=== PATIENT | female | born 1995 | race Caucasian/White ===

== ENCOUNTER 2019-11-26 06:14 | Day surgery (SDC) | payer BC ==
[2019-11-24 12:15] VITALS: BMI 19.6
[2019-11-26] MEDS ORDERED: AFRIN NASAL MIST 15 ML BOT ONE ×2 (06:45→07:03)
[2019-11-26] MEDS ORDERED: Lidocaine 1% w/Epinephrine 1:100K 20 ML VIAL ONE (06:45)
[2019-11-26] MEDS ORDERED: Bacitracin Zinc Ointment 30 gm TUBE ONE (06:45)
[2019-11-26 06:52] LABS: Hemoglobin 12.8 g/dL (12.0-16.0)
[2019-11-26 06:57] LABS: BHCG - Serum Negative (NEGATIVE); Pregs Control Background? CLEAR/WHITE (CLR/WHITE); Pregs Control Bar Appear? YES (CONTROL BAR)
[2019-11-26] MEDS ORDERED: Midazolam HCl 2 mg/2 ml Vial ONE ×2 (07:44→09:43)
[2019-11-26] MEDS ORDERED: Fentanyl 100 MCG/2 ML VIAL ONE ×3 (07:44→08:58)
[2019-11-26] MEDS ORDERED: methylPREDNISolone Acetate 40 mg/ml Vial ONE (08:04)
[2019-11-26] MEDS ORDERED: diphenhydrAMINE 50 MG/ML VIAL ONE (09:02)
[2019-11-26] MEDS ORDERED: Dexamethasone 20 MG/5 ML VIAL ONE (09:32)
[2019-11-26] MEDS ORDERED: Ondansetron PF 4 MG/2 ML Vial ONE (09:32)
[2019-11-26] MEDS ORDERED: Lidocaine 1% PF 5 ML VIAL ONE (09:32)
[2019-11-26] MEDS ORDERED: PROPOFOL 200 MG/20 ML VIAL ONE (09:32)
--- NOTE | 2019-11-27 08:48 | OP ---
DATE OF PROCEDURE: 11/27/2019 PREOPERATIVE DIAGNOSES: 1. Nasal septal deviation. 2. Bilateral inferior turbinate hypertrophy. 3. Nasal valve collapse. 4. Closed nasal fractures. 5. Nasal obstruction. POSTOPERATIVE DIAGNOSES: 1. Nasal septal deviation. 2. Bilateral inferior turbinate hypertrophy. 3. Nasal valve collapse. 4. Closed nasal fractures. 5. Nasal obstruction. PROCEDURES PERFORMED: 1. Nasoseptoplasty. 2. Bilateral repair of nasal wall. 3. Bilateral inferior turbinate submucosal resection. 4. Closed reduction nasal fracture. ESTIMATED BLOOD LOSS: 10 mL. COMPLICATIONS: None. ANESTHESIA: GETA. PROCEDURE IN DETAIL: Patient was taken to the operating room and placed supine on the table. General endotracheal anesthesia was obtained by the anesthesia staff. Then 1% lidocaine with 1:100,000 epinephrine was injected into the nasal septum as well as the inferior turbinates. The patient was prepped and draped in standard surgical fashion. The Afrin pledgets were then removed. A Matias incision was made on the left nasal septum. Submucoperichondrial dissection was performed bilaterally of the deviated portions of the septum, which included the maxillary crest and the crest deviation, as well as the mid portion of the septum. Cartilage and bony deviation was removed, leaving a generous caudal and dorsal strut. Any straight pieces of cartilage were then placed within the cartilage press, pressed, straightened, and then placed between the mucoperichondrial flaps, which were then closed using a 4-0 gut stitch. The inferior turbinates were then punctured with the submucosal Coblation machine, and 3 separate coblations were delivered to the anterior inferior portion of the inferior turbinates. Following this, the nasal cavity was irrigated. All debris was removed. An orogastric tube was placed. Gastric contents and Del Toro splints were then placed in the nasal cavity and sutured with a 3-0 silk stitch. Following this, a small incision was placed in a transcartilaginous approach to the lateral nasal wall. Medial osteotomies were created with a 2-mm osteotome and then lateral osteotomies were created with a 2-mm osteotome. The nasal bones were then repositioned to the normal anatomic position. The previous nasal trauma had caused medial displacement of the left nasal bone more significantly than the right. Following this, a small subperiosteal pocket was created overlying the nasal bones bilaterally and a graft was placed supporting the lateral nasal wall cartilage that had previously been weakened. This incision was then closed using 5-0 chromic gut stitches. Del Toro splints were placed and secured. The patient tolerated the procedure well. Job ID: [id number]
== END 2019-11-26 11:47 | disposition home or self-care (01) ==
LOC: SDC 06:14
PROVIDERS: ATTEND Otolaryngology Plastic Surgery within the Head & Neck
PROC: 0NSBXZZ Reposition Nasal Bone, External Approach (ICD-10-PCS; principal; 2019-11-26)
PROC: 09TL0ZZ Resection of Nasal Turbinate, Open Approach (ICD-10-PCS; principal; 2019-11-26)
PROC: 09SM0ZZ Reposition Nasal Septum, Open Approach (ICD-10-PCS; principal; 2019-11-26)
PROC: 09QK0ZZ Repair Nasal Mucosa and Soft Tissue, Open Approach (ICD-10-PCS; principal; 2019-11-26)
DX: J34.2 Deviated nasal septum (principal); J34.89 Other specified disorders of nose and nasal sinuses; J34.3 Hypertrophy of nasal turbinates; S02.2XXA Fracture of nasal bones, initial encounter for closed fracture; J30.9 Allergic rhinitis, unspecified; M95.0 Acquired deformity of nose; W18.39XA Other fall on same level, initial encounter
CPT/HCPCS: 36415; 84703; 85014; 85018; J1100; J1200; J2250; J2405; J2704; J2920; J3010